=== PATIENT | female | born 2005 | race Caucasian/White ===

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

== ENCOUNTER 2023-03-07 23:25 | Emergency (ER) | payer OTHER ==
[~2023-03-07] VITALS: Ht 172.7 cm; Wt 134.1 kg
[2023-03-07 23:26] VITALS: BP 135/77; TEMP 97.8; O2SAT 96
== END 2023-03-08 02:35 | disposition left against medical advice (07) ==
LOC: M ED 23:25
DX: Z53.21 Procedure and treatment not carried out due to patient leaving prior to being seen by health care provider (principal)

== ENCOUNTER → 2025-02-02 | Outpatient (CLI) | payer BC, OTHER ==
[~2025-02-02] MED LIST changes: +BUSP10TA PO
== END ==
LOC: M PLALAB 14:07
PROVIDERS: ATTEND Advanced Practice Midwife
DX: Z34.01 Encounter for supervision of normal first pregnancy, first trimester (principal)

== ENCOUNTER → 2025-02-22 | Outpatient (CLI) | payer BC, OTHER ==
[2025-02-22 15:42] LABS: PLATELET COUNT, AUTOMATED 316 10^3/uL (150-450)
[2025-02-22 16:44] LABS: HIV 1&2 SCREEN NEGATIVE (NEGATIVE)
[2025-02-22 16:51] LABS: HEPATITIS C VIRUS ABY INDEX < 0.02 INDEX (<0.8)
[2025-02-22 17:00] LABS: Trichomonas vaginalis (AMP) NOT DETECTED (NEGATIVE)
[2025-02-22 17:24] LABS: GC DNA AMPLIFICATION NEGATIVE (NEGATIVE)
== END ==
LOC: M PLALAB 13:47
PROVIDERS: ATTEND Student in an Organized Health Care Education/Training Program
DX: Z34.80 Encounter for supervision of other normal pregnancy, unspecified trimester (principal)

== ENCOUNTER → 2025-02-22 | Outpatient (REF) | payer BC, OTHER | LOC: M PLALAB 13:39 | PROVIDERS: ATTEND Student in an Organized Health Care Education/Training Program | DX: Z53.9 Procedure and treatment not carried out, unspecified reason (principal) ==

== ENCOUNTER → 2025-04-01 | Outpatient (CLI) | payer BC, MEDICAID, SELFPAY | LOC: M WHC 15:19 | PROVIDERS: ATTEND Student in an Organized Health Care Education/Training Program | DX: Z34.82 Encounter for supervision of other normal pregnancy, second trimester (principal); Z3A.19 19 weeks gestation of pregnancy ==